=== PATIENT | female | born 1995 | race Caucasian/White ===

== ENCOUNTER 2020-06-24 12:04 | Emergency (ER) | payer OTHER ==
[~2020-06-24] VITALS: Ht 152.4 cm; Wt 68.0 kg
--- NOTE | 2020-06-24 12:22 | NUR ---
ED Nurse Note: placed patient in room #6/report given to PATY Salomon.
--- NOTE | 2020-06-24 12:24 | NUR ---
ED Nurse Note: [phone] Pt's roommate Vicki.
[2020-06-24 12:30] VITALS: BP 136/86
--- NOTE | 2020-06-24 12:30 | NUR ---
ED Nurse Note: pt GRACE ALEJO RA 25 from home for new onset of sz. per EMS, pt's roommate called ambulance when they found her on the floor. pt states that she has never had this happen before, reports that she has been taking xanax that is not prescribed to her every night to sleep, last took some 2 days ago. pt denies any pain at this time, no head or oral trauma noted. pt presents tearful and anxious but follows commands and consolable. sz precautions initiated
--- NOTE | 2020-06-24 12:59 | Emergency Room Report ---
History of Present Illness General Chief Complaint: Seizure Source: EMS Present Illness HPI 24-year-old female with no significant past medical history presents to the emergency department brought by ambulance after roommate found patient on the ground "shaking ". Patient denies history of seizures. She denies taking any medications. Patient states that she has been regularly taking Xanax that has not been prescribed to her that she buys recreationally. Patient states that she has not had any in 2 days. Patient states that she has been taking this at nighttime for over 4 to 5 months. Patient denies other illicit drug use. She denies history of anxiety, anemia, hypovolemia or syncope. Patient reports that she remembers talking to her roommate this morning about her schedule. Patient states she does not remember feeling ill or having syncope. She denies pain at this time. She denies open wounds or bleeding. She denies oral trauma. She denies tenderness to her head or having a headache. She denies visual changes, blurry vision or dizziness. Patient denies fevers or chills or recent illness. Patient denies neck pain or stiffness. Patient denies having any other symptoms other than amnesia around the alleged event. She denies . Allergies: Coded Allergies: No Known Allergies (Unverified , 06/24/20) COVID-19 Screening Contact w/high risk pt: No Experienced COVID-19 symptoms?: No COVID-19 Testing performed PRIVATE INVESTIGATOR SURVEILLANCE: No Patient History Past Medical History: see triage record Past Surgical History: none Pertinent Family History: none Last Menstrual Period: unknown Now: No Reviewed Nursing Documentation: PMH: Agreed; PSxH: Agreed Nursing Documentation-PMH Past Medical History: No History, Except For Review of Systems All Other Systems: negative except mentioned in HPI Physical Exam Vital Signs Date Time Temp Pulse Resp B/P (MAP) Pulse Ox O2 Delivery O2 Flow Rate FiO2 06/24/20 11:57 99.1 100 16 136/86 (103) 98 Room Air Sp02 EP Interpretation: reviewed, normal General Appearance: no apparent distress, alert, GCS 15, non-toxic Head: normocephalic, atraumatic Eyes: bilateral eye normal inspection, bilateral eye PERRL, bilateral eye EOMI, bilateral eye other - no photophobia ENT: hearing grossly normal, normal pharynx, normal voice, uvula midline, moist mucus membranes, other - No obvious oral trauma Neck: full range of motion, no meningismus, no bony tend Respiratory: chest non-tender, lungs clear, normal breath sounds, no respiratory distress, no accessory muscle use, no wheezing, speaking full sentences Cardiovascular #1: regular rate, rhythm, no edema, normal capillary refill Cardiovascular #2: 2+ radial (R), 2+ radial (L) Gastrointestinal: normal bowel sounds, non tender, soft Genitourinary: normal inspection Musculoskeletal: normal range of motion, gait/station normal, non-tender Neurologic: alert, motor strength/tone normal, oriented x3, sensory intact, responsive, speech normal Psychiatric: judgement/insight normal Skin: no rash, normal color, other - no lacerations, bruises or abrasions. Lymphatic: no adenopathy Medical Decision Making PA Attestation Dr. Chavez Is my supervising Physician whom patient management has been discussed with. Diagnostic Impression: Primary Impression: Single seizure ER Course 24-year-old female with no significant past medical history presents to the emergency department brought by ambulance after roommate found patient on the ground "shaking ". Patient denies history of seizures. She denies taking any medications. Patient states that she has been regularly taking Xanax that has not been prescribed to her that she buys recreationally. Patient states that she has not had any in 2 days. Patient states that she has been taking this at nighttime for over 4 to 5 months. Patient denies other illicit drug use. She denies history of anxiety, anemia, hypovolemia or syncope. Patient reports that she remembers talking to her roommate this morning about her schedule. Patient states she does not remember feeling ill or having syncope. She denies pain at this time. She denies open wounds or bleeding. She denies oral trauma. She denies tenderness to her head or having a headache. She denies visual changes, blurry vision or dizziness. Patient denies fevers or chills or recent illness. Patient denies neck pain or stiffness. Patient denies having any other symptoms other than amnesia around the alleged event. She denies . Ddx considered but are not limited to seizure, meningitis, infection, CVA/TIA, intracranial hemorrhage, intracranial process, intoxication, drug W/d. Vital signs: he is afebrile, vital signs are WNL H&PE are most consistent with syncopal episode with post-ictal state, no oral trauma, no obvious head trauma. ORDERS: -CMP: WNL -CBC: WNL - Depakote level: in therapeutic range -UA: WNL- some ketones -UDS: Positive for THC -Hcg: Negative -TSH: WNL -Free T3/T4: -EK NSR ED INTERVENTIONS: 1 Liter NS -Pt. given OJ as she has not eaten today. -I do not identify an emergent condition at this time. With current pre sentation, pt. is stable for close outpatient follow up and conservative treatment. D/w pt. to return promptly to ED with worsening or new symptoms.- Pt. verbalizes' understanding and agreement with proposed treatment plan. DISCHARGE: At this time pt. is stable for d/c to home. Will provide printed patient care instructions, and any necessary prescriptions. Care plan and follow up instructions have been discussed with the patient prior to discharge. Labs Test 06/24/20 12:51 06/24/20 13:15 White Blood Count 9.6 K/UL (4.8-10.8) Red Blood Count 4.89 M/UL (4.20-5.40) Hemoglobin 15.8 G/DL (12.0-16.0) Hematocrit 47.9 % (37.0-47.0) Mean Corpuscular Volume 98 FL (80-99) Mean Corpuscular Hemoglobin 32.4 PG (27.0-31.0) Mean Corpuscular Hemoglobin Concent 33.0 G/DL (32.0-36.0) Red Cell Distribution Width 11.6 % (11.6-14.8) Platelet Count 200 K/UL (150-450) Mean Platelet Volume 7.0 FL (6.5-10.1) Neutrophils (%) (Auto) 84.0 % (45.0-75.0) Lymphocytes (%) (Auto) 10.5 % (20.0-45.0) Monocytes (%) (Auto) 4.3 % (1.0-10.0) Eosinophils (%) (Auto) 0.4 % (0.0-3.0) Basophils (%) (Auto) 0.8 % (0.0-2.0) Sodium Level 138 MMOL/L (136-145) Potassium Level 4.0 MMOL/L (3.5-5.1) Chloride Level 107 MMOL/L (98-107) Carbon Dioxide Level 18 MMOL/L (21-32) Anion Gap 13 mmol/L (5-15) Blood Urea Nitrogen 10 mg/dL (7-18) Creatinine 0.9 MG/DL (0.55-1.30) Estimat Glomerular Filtration Rate > 60 mL/min (>60) Glucose Level 133 MG/DL (74-106) Calcium Level 9.1 MG/DL (8.5-10.1) Phosphorus Level 1.7 MG/DL (2.5-4.9) Magnesium Level 2.3 MG/DL (1.8-2.4) Total Bilirubin 0.5 MG/DL (0.2-1.0) Aspartate Amino Transf (AST/SGOT) 20 U/L (15-37) Alanine Aminotransferase (ALT/SGPT) 13 U/L (12-78) Alkaline Phosphatase 34 U/L (46-116) Total Protein 7.9 G/DL (6.4-8.2) Albumin 4.1 G/DL (3.4-5.0) Globulin 3.8 g/dL Albumin/Globulin Ratio 1.1 (1.0-2.7) Thyroid Stimulating Hormone (TSH) 2.200 uiU/mL (0.358-3.740) Free Thyroxine 1.27 NG/DL (0.76-1.46) Urine Color Pale yellow Urine Appearance Slightly cloudy Urine pH 5 (4.5-8.0) Urine Specific [place] 1.025 (1.005-1.035) Urine Protein 2+ (NEGATIVE) Urine Glucose (UA) Negative (NEGATIVE) Urine Ketones 4+ (NEGATIVE) Urine Blood 4+ (NEGATIVE) Urine Nitrite Negative (NEGATIVE) Urine Bilirubin Negative (NEGATIVE) Urine Urobilinogen Normal MG/DL (0.0-1.0) Urine Leukocyte Esterase Negative (NEGATIVE) Urine HCG, Qualitative Negative (NEGATIVE) Urine Opiates Screen Negative (NEGATIVE) Urine Barbiturates Screen Negative (NEGATIVE) Phencyclidine (PCP) Screen Negative (NEGATIVE) Urine Amphetamines Screen Negative (NEGATIVE) Urine Benzodiazepines Screen Negative (NEGATIVE) Urine Cocaine Screen Negative (NEGATIVE) Urine Marijuana (THC) Screen Positive (NEGATIVE) EKG Diagnostic Results Troponin ordered: No - No cardiac RF, no CP EKG Time: 12:49 Rate: normal - 86 BPM Rhythm: NSR ST Segments: no acute changes ASA given to the pt in ED: No PA Scribe Text This Interpretation was scribed by EUGENIO Stovall. CT/MRI/US Diagnostic Results CT/MRI/US Diagnostic Results : Imaging Test Ordered: CT Head No Contrast Impression " No acute intracranial pathology or intracranial hemorrhage ." --Per official radiology report- Please see report for specific details. Last Vital Signs Date Time Temp Pulse Resp B/P (MAP) Pulse Ox O2 Delivery O2 Flow Rate FiO2 06/24/20 11:57 99.1 100 16 136/86 (103) 98 Room Air Status: improved Disposition: HOME, SELF-CARE Condition: Stable Referrals: Misty Infante [facility] Patient Instructions: Seizure, Adult Additional Instructions: Take medications as directed. Follow up with a Primary Care Provider in 3-5 days For a referral to have NEUROLOGIST Evaluation, even if your symptoms have resolved. --Please review list of primary care clinics, if you do not already have a primary care provider Return sooner to ED if new symptoms occur, or current symptoms become worse. - Please note that this Emergency Department Report was dictated using [employer] lab technician technology software, occasionally this can lead to erroneous entry secondary to interpretation by the dictation equipment. Asia Stovall Jun 24, 2020 12:59
[2020-06-24 13:13] LABS: BASOPHILS % (AUTO) 0.8 % (0.0-2.0); EOSINOPHILS % (AUTO) 0.4 % (0.0-3.0); HEMATOCRIT 47.9 % (37.0-47.0); HEMOGLOBIN 15.8 G/DL (12.0-16.0); LYMPHOCYTES % (AUTO) 10.5 % (20.0-45.0); MEAN CORPUSCULAR VOLUME 98 FL (80-99); MONOCYTES % (AUTO) 4.3 % (1.0-10.0); PLATELET COUNT 200 K/UL (150-450); RED BLOOD COUNT 4.89 M/UL (4.20-5.40); RED CELL DISTRIBUTION WIDTH 11.6 % (11.6-14.8); WHITE BLOOD COUNT 9.6 K/UL (4.8-10.8)
--- NOTE | 2020-06-24 13:17 | Diagnostic Imaging Report ---
Indication: Shortness of breath Technique: Single AP view of the chest. Comparison: None. Findings: The cardiomediastinal silhouette is within normal limits. There is no focal consolidation, pneumothorax or pleural effusion. Osseous structures demonstrate no acute abnormality. IMPRESSION: No radiographic evidence of acute cardiopulmonary process.
[2020-06-24 13:25] LABS: ANION GAP 13 mmol/L (5-15); BLOOD UREA NITROGEN 10 mg/dL (7-18); CALCIUM 9.1 MG/DL (8.5-10.1); CARBON DIOXIDE 18 MMOL/L (21-32); CHLORIDE 107 MMOL/L (98-107); CREATININE 0.9 MG/DL (0.55-1.30); SODIUM 138 MMOL/L (136-145)
[2020-06-24 13:37] LABS: ALANINE AMINOTRANSFERASE 13 U/L (12-78); ALBUMIN 4.1 G/DL (3.4-5.0); ALBUMIN/GLOBULIN RATIO 1.1 (1.0-2.7); ALKALINE PHOSPHATASE 34 U/L (46-116); ASPARTATE AMINO TRANSFERASE 20 U/L (15-37); BILIRUBIN,TOTAL 0.5 MG/DL (0.2-1.0); PHOSPHORUS 1.7 MG/DL (2.5-4.9)
--- NOTE | 2020-06-24 13:46 | Diagnostic Imaging Report ---
CT HEAD WITHOUT CONTRAST INDICATION: Reason For Exam: [facility] Technique: Continuous helical CT scanning of the head was performed without intravenous contrast material. Axial and coronal 5 mm sections were generated. Radiation dose was minimized using automated exposure control DOSE: Total Dose Length Product - DLP 1179.[address] Dose Index - CTDIvol(s) 53.4 mGy. COMPARISON: None available FINDINGS: There is no acute intracranial hemorrhage, mass effect or cortical edema. The ventricles, cisterns and sulci are normal for age. Small right maxillary sinus mucus retention cysts. Mastoid air cells are clear. No focal lesions of the bony calvarium or soft tissues of the scalp are seen. IMPRESSION: No evidence of acute intracranial hemorrhage, mass effect or cortical edema. MRI may be obtained for more sensitive evaluation as clinically indicated. The CT scanner at [facility] is accredited by the [employer] and the scans are performed using protocols designed to limit radiation exposure to as low as reasonably achievable to attain images of sufficient resolution adequate for diagnostic evaluation.
[2020-06-24 13:55] LABS: APPEARANCE,URINE SLIGHTLY CLOUDY; BILIRUBIN, URINE NEGATIVE (NEGATIVE); COLOR,URINE PALE YELLOW; GLUCOSE, URINE (UA) NEGATIVE (NEGATIVE); KETONES,URINE 4+ (NEGATIVE); LEUKOCYTE ESTERASE ,URINE NEGATIVE (NEGATIVE); NITRITE,URINE NEGATIVE (NEGATIVE); PH,URINE 5 (4.5-8.0); PROTEIN,URINE 2+ (NEGATIVE); UROBILINOGEN,URINE NORMAL MG/DL (0.0-1.0)
--- NOTE | 2020-06-24 14:20 | NUR ---
ED Nurse Note: Patient provided with orange juice and sandwich. Pt is awake and alert x 4 and follows commands.
[2020-06-24 14:30] VITALS: BP 122/71
[2020-06-24] MEDS ORDERED: LORazepam 0.5mg tab ORAL ONE (14:30)
--- NOTE | 2020-06-24 14:30 | NUR ---
ER DISCHARGE NOTE: Patient is cleared to be discharged per PA, pt is aox4, on room air, with stable vital signs. pt was given dc instructions, pt was able to verbalize understanding, pt id band and iv site removed without complications. pt is able to ambulate with steady gait. pt took all belongings and left with her roommate.
--- NOTE | 2020-06-25 15:58 | Cardiology Report ---
APPROVED REPORT EKG Measurement Heart [id number] <Conclusion> Normal sinus rhythm with sinus arrhythmia Normal ECG
== END 2020-06-24 14:30 | disposition home or self-care (01) ==
LOC: EDBD 12:04 → EMR 14:25
DX: R56.9 Unspecified convulsions (principal); R06.02 Shortness of breath; R41.82 Altered mental status, unspecified
CPT/HCPCS: 36415; 70450; 71045; 80053; 80307; 81003; 81025; 83735; 84100; 84439; 84443; 85025; 93005; 96360; J7030; Z7502; 99284